=== PATIENT | male | born 1955 | race Caucasian/White ===

== ENCOUNTER 2018-09-27 12:49 | Emergency (ER) | payer MEDICAID ==
[~2018-09-27] VITALS: Ht 177.8 cm; Wt 99.8 kg
[2018-09-27 12:49] VITALS: BP_SYST 144
--- NOTE | 2018-09-27 12:49 | NUR ---
BROUGHT BACK TO BED #7 AND TRIAGED. REPORT GIVEN TO SEDRICK.
--- NOTE | 2018-09-27 12:50 | NUR ---
PT NEEDS RX FOR XANAX 0.5 PO BID PRN LYRICA 50 MG PO DAILY HCTZ 25 MG PO DAILY PROPANOLOL 10 MG PO HS LISINOPRIL 40 MG PO DAILY
--- NOTE | 2018-09-27 13:00 | NUR ---
patient [facility] from [facility]. patient stated he is here for refills in medications. patient has been in [place] for 2 years and hasn't found a primary care yet but needs a refill. 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
--- NOTE | 2018-09-27 13:05 | NUR ---
CORRIE ESTRADA, Danny at bedside examining patient.
[2018-09-27 13:50] VITALS: BP_SYST 144
--- NOTE | 2018-09-27 13:50 | NUR ---
Patient given written and verbal discharge instructions and verbalizes understanding. ER MD discussed with patient the results and treatment provided. Patient in stable condition. ID arm band removed. Rx of Lyrica, Lisinopril,Prednisone, Hydrochlorothiazide, xanax, Azithromycin given. Patient educated on pain management and to follow up with PMD. Pain Scale 0/10. Educated on no driving or drinking while taking pain meidcation. Opportunity for questions provided and answered. Medication side effect fact sheet provided.
== END 2018-09-27 13:50 | disposition home or self-care (01) ==
LOC: SED 12:49
DX: J02.9 Acute pharyngitis, unspecified (principal); I10 Essential (primary) hypertension; F41.9 Anxiety disorder, unspecified; Z76.0 Encounter for issue of repeat prescription
CPT/HCPCS: 36415; 86403; 87081; 99283

== ENCOUNTER 2018-11-24 09:41 | Emergency (ER) | payer MEDICAID ==
[~2018-11-24] VITALS: Ht 177.8 cm; Wt 102.1 kg
[2018-11-24 10:10] VITALS: BP_SYST 128
[2018-11-24] MEDS ORDERED: IBUPROFEN 800 MG TABLET PO ONE (10:45)
[2018-11-24 10:55] VITALS: BP_SYST 128
== END 2018-11-24 10:55 | disposition home or self-care (01) ==
LOC: SED 09:41
DX: J02.9 Acute pharyngitis, unspecified (principal); F41.9 Anxiety disorder, unspecified; I10 Essential (primary) hypertension
CPT/HCPCS: 99282

== ENCOUNTER 2018-12-13 12:58 | Emergency (ER) | payer MEDICAID ==
[~2018-12-13] VITALS: Ht 175.3 cm; Wt 103.0 kg
[2018-12-13 13:06] VITALS: BP_SYST 132
[2018-12-13 13:36] VITALS: BP_SYST 132
== END 2018-12-13 13:34 | disposition home or self-care (01) ==
LOC: SED 12:58
DX: Z76.0 Encounter for issue of repeat prescription (principal); I10 Essential (primary) hypertension; F41.9 Anxiety disorder, unspecified
CPT/HCPCS: 99283

== ENCOUNTER 2019-10-24 11:59 | Emergency (ER) | payer MEDICAID ==
[~2019-10-24] VITALS: Ht 177.8 cm; Wt 102.1 kg
[2019-10-24 12:42] VITALS: BP_SYST 126
--- NOTE | 2019-10-24 15:56 | NUR ---
Placed in chair 1. MSE completed by myself.
--- NOTE | 2019-10-24 15:57 | NUR ---
Patient is awake, alert, and oriented x4. Patient is complaining of cold, congestion, and intermittent headache x2 months.
--- NOTE | 2019-10-24 16:00 | NUR ---
Patient ambulated to radiology, accompanied by shop service technician.
--- NOTE | 2019-10-24 16:26 | NUR ---
Patient given written and verbal discharge instructions and verbalizes understanding. ER MD discussed with patient the results and treatment provided. Patient in stable condition. ID arm band removed. Rx of motrin, augementin, fluticasone, albuterol given. Patient educated on pain management and to follow up with PMD. Pain Scale 0/10. Opportunity for questions provided and answered. Medication side effect fact sheet provided.
[2019-10-24 16:27] VITALS: BP_SYST 120
== END 2019-10-24 16:27 | disposition home or self-care (01) ==
LOC: SED 11:59
DX: J32.9 Chronic sinusitis, unspecified (principal); I10 Essential (primary) hypertension; M54.5 Low back pain; F41.9 Anxiety disorder, unspecified; Z86.59 Personal history of other mental and behavioral disorders
CPT/HCPCS: 36415; 71045; 86710; 99284

== ENCOUNTER 2020-02-14 07:56 | Emergency (ER) | payer MEDICAID ==
[~2020-02-14] VITALS: Ht 177.8 cm; Wt 106.6 kg
[2020-02-14 07:56] VITALS: BP_SYST 148
[2020-02-14] MEDS ORDERED: LORazepam 1 MG TABLET PO ONE (08:30)
[2020-02-14] MEDS ORDERED: KETOROLAC TROMETHAMINE 60 MG/2 ML VIAL IM ONE (08:30)
[2020-02-14 09:01] LABS: BASOPHILS # (AUTO) 0.1 K/uL (0.0-0.2); BASOPHILS % (AUTO) 0.6 % (0.0-2.0); EOSINOPHILS % (AUTO) 0.3 % (0.0-4.0); HEMATOCRIT 44.4 % (36-54); HEMOGLOBIN 15.2 g/dL (14.0-18.0); LYMPHOCYTES # (AUTO) 2.2 K/uL (1.0-5.5); LYMPHOCYTES % (AUTO) 22.5 % (20.5-51.5); MEAN CORPUSCULAR HEMOGLOBIN 32 pg (27-31); MEAN CORPUSCULAR HGB CONC 34 % (32-36); MEAN CORPUSCULAR VOLUME 92 fL (79.0-98.0); MONOCYTES # (AUTO) 0.6 K/uL (0.0-1.0); MONOCYTES % (AUTO) 6.3 % (1.7-9.3); NEUTROPHILS # (AUTO) 6.9 K/uL (1.8-7.7); NEUTROPHILS % (AUTO) 70.3 % (40.0-70.0); PLATELET COUNT (AUTO) 313 K/uL (130-430); RED BLOOD CELL COUNT(AUTO) 4.81 MIL/uL (4.2-6.2); RED CELL DISTRIBUTION WIDTH 13.9 % (9.0-15.0); WHITE BLOOD COUNT (AUTO) 9.8 K/uL (4.8-10.8)
[2020-02-14 09:03] LABS: CREATININE 1.22 mg/dL (0.55-1.30)
[2020-02-14 09:05] LABS: ALBUMIN 4.1 g/dL (3.4-4.8); TOTAL BILIRUBIN 0.8 mg/dL (0.0-1.0)
[2020-02-14 09:35] VITALS: BP_SYST 144
== END 2020-02-14 09:32 | disposition home or self-care (01) ==
LOC: SED 07:56
DX: F41.9 Anxiety disorder, unspecified (principal); R10.9 Unspecified abdominal pain; I10 Essential (primary) hypertension
CPT/HCPCS: 36415; 74018; 80053; 83690; 85025; 96372; 99284; J1885